=== PATIENT | male | born 1975 | race Caucasian/White ===

== ENCOUNTER 2018-10-04 22:25 | Emergency (ER) | payer BC, OTHER ==
[2018-10-04] MEDS ORDERED: NA CHLORIDE 0.9% 1,000 ML ONE (23:35)
[2018-10-04] MEDS ORDERED: METOPROLOL TARTRATE 5 MG/5 ML INJ IV ONE (23:35)
[2018-10-04 23:53] LABS: Absolute Lymphocytes (CBC) 2.2 K/uL (0.7-4.9); Absolute Monocytes 0.6 K/uL (0.1-1.3); Absolute Neutrophil 4.2 K/uL (1.8-8.0); Basophils % 0.2 % (0-1.3); Eosinophils % 6.3 % (0-4.4); Hematocrit 43.9 % (39.6-49.0); Lymphocytes % 29.3 % (15.3-44.8); MPV 8.7 fL (7.6-11.3); Monocytes % 7.8 % (3.3-12.3); RBC Red Blood Cell Count 5.42 M/uL (4.33-5.43)
[2018-10-05 00:06] LABS: BUN Blood Urea Nitrogen 15 mg/dL (7-18); Bicarbonate 28 mmol/L (21-32); Creatine Phosphokinase 164 U/L (39-308); Glucose Level 106 mg/dL (74-106); Potassium 3.8 mmol/L (3.5-5.1); Sodium Level 147 mmol/L (136-145); Troponin (Emerg Dept Use Only) < 0.02 ng/mL (0.0-0.045)
[2018-10-05] MEDS ORDERED: METOPROLOL TAR 50 MG TAB ONE (00:24)
--- NOTE | 2018-10-05 00:45 | ER ---
Nurse's Notes [facility] Name: Thanh Rivera Age: 43 yrs Sex: Male : 1975 Arrival Date: 10/04/2018 Time: 22:26 Bed 20 Private MD: Diagnosis: Atrial fibrillation and flutter Presentation: 10/04 22:35 Presenting complaint: Patient states: Was at work and began to not feel well, vitals lp1 done and HR was in 140's, patient was sent home about 15 min ago; States chest tightness has improved slightly; States similar symptoms years ago. Transition of care: patient was not received from another setting of care. Onset of symptoms was October 04, 2018 at 22:15. Risk Assessment: Do you want to hurt yourself or someone else? Patient reports no desire to harm self or others. Initial Sepsis Screen: Does the patient meet any 2 criteria? No. Patient's initial sepsis screen is negative. Does the patient have a suspected source of infection? No. Patient's initial sepsis screen is negative. Care prior to arrival: None. 22:35 Method Of Arrival: Ambulatory lp1 22:35 Acuity: MANNY 3 lp1 Historical: - Allergies: 22:37 Bactrim; lp1 - Home Meds: 22:37 None [Active]; lp1 - PMHx: 22:37 None; lp1 - PSHx: 22:37 Hernia repair; lp1 - Immunization history:: Adult Immunizations up to date. - Social history:: Smoking status: Patient/guardian denies using tobacco. - Ebola Screening: : No symptoms or risks identified at this time. Screenin:00 Abuse screen: Denies threats or abuse. Denies injuries from another. Nutritional rr5 screening: No deficits noted. Tuberculosis screening: No symptoms or risk factors identified. Fall Risk IV access (20 points). Total Wheatley Fall Scale indicates No Risk (0-24 pts). Assessment: 22:50 General: Appears in no apparent distress. uncomfortable, Behavior is calm, cooperative, rr5 appropriate for age. Pain: Complains of pain in epigastric area Pain does not radiate. Pain currently is 2 out of 10 on a pain scale. Quality of pain is described as aching, Pain began gradually, Is intermittent. 22:50 Neuro: Level of Consciousness is awake, alert, obeys commands, Oriented to person, rr5 place, time, situation, Appropriate for age. Cardiovascular: Reports chest pain, Capillary refill < 3 seconds Patient's skin is warm and dry. Rhythm is atrial fibrillation with rapid ventricular response. Respiratory: Airway is patent Respiratory effort is even, unlabored, Respiratory pattern is regular, symmetrical. GI: Abdomen is round. : No signs and/or symptoms were reported regarding the genitourinary system. EENT: No signs and/or symptoms were reported regarding the EENT system. Derm: Skin is intact, Skin temperature is warm. Musculoskeletal: Capillary refill < 3 seconds, Range of motion: intact in all extremities. 23:44 Reassessment: Patient appears in no apparent distress at this time. Patient is alert, rr5 oriented x 3, equal unlabored respirations, skin warm/dry/pink. no more pain, a lot better now. Patient states feeling better. Patient states symptoms have improved. Pain: Denies pain. 10/05 00:30 Reassessment: Patient appears in no apparent distress at this time. Patient is alert, rr5 oriented x 3, equal unlabored respirations, skin warm/dry/pink. reassess by ED provider patient feels better now as verbalized. 00:50 Reassessment: Patient appears in no apparent distress at this time. Patient is alert, rr5 oriented x 3, equal unlabored respirations, skin warm/dry/pink. discharge instruction given and explained without complaints made. Patient denies pain at this time. Patient states feeling better. Patient states symptoms have improved. Vital Signs: 10/04 22:37 BP 154 / 91; Pulse 61; Resp 18; Temp 97.7(TE); Pulse Ox 98% on R/A; Weight 81.65 kg; lp1 Height 5 ft. 7 in. (170.18 cm); Pain 0/10; 23:00 BP 139 / 85; Pulse 144; Resp 17; Pulse Ox 98% ; rr5 23:30 BP 136 / 90; Pulse 149; Resp 19; Pulse Ox 99% ; rr5 23:35 BP 134 / 90; Pulse 124; Resp 17; Pulse Ox 99% on R/A; rr5 23:44 BP 130 / 85; Pulse 95; Resp 17; Pulse Ox 98% on R/A; rr5 10/05 00:20 BP 137 / 85; Pulse 94; Resp 17; Pulse Ox 99% on R/A; rr5 00:50 BP 126 / 81; Pulse 92; Resp 17; Pulse Ox 100% ; Pain 0/10; rr5 10/04 22:37 Body Mass Index 28.19 (81.65 kg, 170.18 cm) lp1 ED Course: 10/04 22:26 Patient arrived in ED. am2 22:37 Triage completed. lp1 22:37 Arm band placed on left wrist. lp1 22:50 Mele Alonzo, RN is Primary Nurse. rr5 22:50 Patient has correct armband on for positive identification. Bed in low position. Call rr5 light in reach. Side rails up X2. monitor and storage bin tender on. Pulse ox on. NIBP on. 22:54 Edilia Gao FNP-C is PHCP. snw 22:54 Monty Hatfield MD is Attending Physician. snw 23:00 Inserted saline lock: 20 gauge in left antecubital area, using aseptic technique. Blood rr5 collected. 10/05 00:35 EKG done, by ED staff, reviewed by Monty Hatfield MD. rr5 00:45 Arden Miller MD is Referral Physician. gs 00:51 No provider procedures requiring assistance completed. IV discontinued, intact, rr5 bleeding controlled, No redness/swelling at site. Pressure dressing applied. Administered Medications: 10/04 23:30 Drug: Lopressor 5 mg {Note: HR 149bpm.} Route: IVP; Site: left antecubital; rr5 10/05 00:50 Follow up: Response: No adverse reaction rr5 10/04 23:30 Drug: NS 0.9% 1000 ml Route: IV; Rate: 1 bolus; Site: left antecubital; rr5 10/05 00:52 Follow up: Response: No adverse reaction; IV Status: Completed infusion; IV Intake: rr5 1000ml 00:15 Drug: Metoprolol TARTRATE (Lopressor) 50 mg {Note: HR 95bpm.} Route: PO; rr5 00:50 Follow up: Response: No adverse reaction rr5 Intake: 00:52 IV: 1000ml; Total: 1000ml. rr5 Outcome: 00:45 Discharge ordered by . gs 00:51 Discharged to home ambulatory. rr5 00:51 Condition: stable 00:51 Discharge instructions given to patient, Instructed on discharge instructions, follow up and referral plans. medication usage, Demonstrated understanding of instructions, follow-up care, medications, Prescriptions given X 1. 00:51 Patient left the ED. rr5 Signatures: Edilia Gao, WRINGER AND SETTER-C WRINGER AND SETTER-Csnw Sandra Gardner, RN RN lp1 Philly Sandoval am2 Monty Hatfield MD MD gs Roque, Raymond RN RN rr5
--- NOTE | 2018-10-05 00:45 | EDPHYS ---
Physician Documentation [facility] Name: Thanh Rivera Age: 43 yrs Sex: Male : 1975 Arrival Date: 10/04/2018 Time: 22:26 Bed 20 Private MD: ED Physician Monty Hatfield HPI: 10/05 00:36 This 43 yrs old Male presents to ER via Ambulatory with complaints of heart gs racing. 00:36 The patient presents with a history of irregular heart beat, heart racing. Context: The gs symptoms occur at rest. Onset: The symptoms/episode began/occurred acutely, just prior to arrival. Duration: The patient or guardian reports a single episode, that is still ongoing. Modifying factors: The symptoms are aggravated by nothing. The symptoms are alleviated by nothing. Associated signs and symptoms: Pertinent positives: chest heaviness. Severity of symptoms: At their worst the symptoms were incapacitating in the emergency department the symptoms are unchanged. The patient has experienced similar episodes in the past, several times. The patient has not recently seen a physician. Historical: - Allergies: 10/04 22:37 Bactrim; lp1 - Home Meds: 22:37 None [Active]; lp1 - PMHx: 22:37 None; lp1 - PSHx: 22:37 Hernia repair; lp1 - Immunization history:: Adult Immunizations up to date. - Social history:: Smoking status: Patient/guardian denies using tobacco. - Ebola Screening: : No symptoms or risks identified at this time. ROS: 10/05 00:36 All other systems are negative. gs Exam: 00:36 Head/Face: Normocephalic, atraumatic. Eyes: Pupils equal round and reactive to light, gs extra-ocular motions intact. Lids and lashes normal. Conjunctiva and sclera are non-icteric and not injected. Cornea within normal limits. Periorbital areas with no swelling, redness, or edema. ENT: Nares patent. No nasal discharge, no septal abnormalities noted. Tympanic membranes are normal and external auditory canals are clear. Oropharynx with no redness, swelling, or masses, exudates, or evidence of obstruction, uvula midline. Mucous membranes moist. Neck: Trachea midline, no thyromegaly or masses palpated, and no cervical lymphadenopathy. Supple, full range of motion without nuchal rigidity, or vertebral point tenderness. No Meningismus. Chest/axilla: Normal chest wall appearance and motion. Nontender with no deformity. No lesions are appreciated. Respiratory: Lungs have equal breath sounds bilaterally, clear to auscultation and percussion. No rales, rhonchi or wheezes noted. No increased work of breathing, no retractions or nasal flaring. Abdomen/GI: Soft, non-tender, with normal bowel sounds. No distension or tympany. No guarding or rebound. No evidence of tenderness throughout. Back: No spinal tenderness. No costovertebral tenderness. Full range of motion. Skin: Warm, dry with normal turgor. Normal color with no rashes, no lesions, and no evidence of cellulitis. MS/ Extremity: Pulses equal, no cyanosis. Neurovascular intact. Full, normal range of motion. Neuro: Awake and alert, GCS 15, oriented to person, place, time, and situation. Cranial nerves II-XII grossly intact. Motor strength 5/5 in all extremities. Sensory grossly intact. Cerebellar exam normal. Normal gait. 00:36 Constitutional: The patient appears alert, awake, in obvious distress, severely distressed. 00:36 Cardiovascular: Rate: tachycardic, Rhythm: irregularly irregular, Pulses: no pulse deficits are appreciated, Heart sounds: normal. 00:36 ECG was reviewed by the Attending Physician. 00:36 ECG was reviewed by the Attending Physician. Vital Signs: 10/04 22:37 BP 154 / 91; Pulse 61; Resp 18; Temp 97.7(TE); Pulse Ox 98% on R/A; Weight 81.65 kg; lp1 Height 5 ft. 7 in. (170.18 cm); Pain 0/10; 23:00 BP 139 / 85; Pulse 144; Resp 17; Pulse Ox 98% ; rr5 23:30 BP 136 / 90; Pulse 149; Resp 19; Pulse Ox 99% ; rr5 23:35 BP 134 / 90; Pulse 124; Resp 17; Pulse Ox 99% on R/A; rr5 23:44 BP 130 / 85; Pulse 95; Resp 17; Pulse Ox 98% on R/A; rr5 10/05 00:20 BP 137 / 85; Pulse 94; Resp 17; Pulse Ox 99% on R/A; rr5 00:50 BP 126 / 81; Pulse 92; Resp 17; Pulse Ox 100% ; Pain 0/10; rr5 10/04 22:37 Body Mass Index 28.19 (81.65 kg, 170.18 cm) lp1 MDM: 10/04 23:13 Patient medically screened. gs 10/05 00:36 Differential diagnosis: arrythmia, dehydration, stress disorder. Data reviewed: vital gs signs, nurses notes. Response to treatment: the patient's symptoms have resolved after treatment, the patient's condition has returned to base line. 10/04 22:55 Order name: CBC with Diff; Complete Time: 00:05 snw 10/04 22:55 Order name: Chem 7; Complete Time: 00:07 snw 10/04 22:55 Order name: Troponin (emerg Dept Use Only); Complete Time: 00:07 snw 10/04 22:55 Order name: CPK; Complete Time: 00:07 snw 10/04 22:55 Order name: EKG; Complete Time: 22:55 snw 10/04 22:55 Order name: EKG - Nurse/Tech; Complete Time: 23:04 snw 10/04 22:55 Order name: SL; Complete Time: 23:33 snw EC:36 Rate is 156 beats/min. Rhythm is irregularly irregular. QRS interval is normal. T waves gs are Normal. Clinical impression: Atrial Fibrillation. Interpreted by me. 00:36 Rate is 94 beats/min. Rhythm is regular. [place] interval is normal. QRS interval is normal. gs QT interval is normal. No Q waves. T waves are Normal. No ST changes noted. Clinical impression: Normal ECG. Interpreted by me. Administered Medications: 10/04 23:30 Drug: Lopressor 5 mg {Note: HR 149bpm.} Route: IVP; Site: left antecubital; rr5 10/05 00:50 Follow up: Response: No adverse reaction rr5 10/04 23:30 Drug: NS 0.9% 1000 ml Route: IV; Rate: 1 bolus; Site: left antecubital; rr5 10/05 00:52 Follow up: Response: No adverse reaction; IV Status: Completed infusion; IV Intake: rr5 1000ml 00:15 Drug: Metoprolol TARTRATE (Lopressor) 50 mg {Note: HR 95bpm.} Route: PO; rr5 00:50 Follow up: Response: No adverse reaction rr5 Disposition: 10/05/18 00:45 Discharged to Home. Impression: Atrial fibrillation and flutter. - Condition is Stable. - Discharge Instructions: Atrial Fibrillation. - Prescriptions for Metoprolol Tartrate 50 mg Oral Tablet - take 1 tablet by ORAL route 2 times per day take with meal; 30 tablet. - Medication Reconciliation Form, Thank You Letter, Antibiotic Education, Prescription Opioid Use form. - Follow up: Arden Miller MD; When: 1 - 2 days; Reason: Re-evaluation by your physician. Signatures: Dispatcher [employer] EDMS Edilia Gao, CARTON MACHINE OPERATOR-C CARTON MACHINE OPERATOR-Csnw Sandra Gardner RN RN lp1 Monty Hatfield MD MD gs Mele Alonzo RN RN rr5 Corrections: (The following items were deleted from the chart) 00:51 00:45 10/05/2018 00:45 Discharged to Home. Impression: Atrial fibrillation and flutter. rr5 Condition is Stable. Forms are Medication Reconciliation Form, Thank You Letter, Antibiotic Education, Prescription Opioid Use. Follow up: Arden Miller; When: 1 - 2 days; Reason: Re-evaluation by your physician.
[2018-10-05 01:47] VITALS: TEMP 97.7
[2018-10-05 01:56] VITALS: BP 126/81; O2SAT 100
--- NOTE | 2018-10-05 07:49 | EKG ---
Test Date: 2018-10-04 Test Time: 22:46:52 Mechanical Integrity Engineer: RR MEASUREMENT RESULTS: Intervals: Rate: 156 NV: QRSD: 92 QT: 298 QTc: 480 Vera: P: NV: QRS: 85 T: -16 INTERPRETIVE STATEMENTS: Atrial fibrillation with rapid ventricular response ST & T wave abnormality, consider inferior ischemia Abnormal ECG Compared to ECG 12/07/2013 07:53:27 ST (T wave) deviation now present Possible ischemia now present Sinus rhythm no longer present Electronically Signed On 10-05-18 07:48:49 CDT by Arden Miller
== END 2018-10-05 00:51 | disposition home or self-care (01) ==
LOC: ER 22:25
DX: I48.91 Unspecified atrial fibrillation (principal); I48.92 Unspecified atrial flutter
CPT/HCPCS: 36415; 80048; 82550; 84484; 85025; 93005; 96361; 96374; 99284; J7030